=== PATIENT | female | born 1990 | race Caucasian/White ===

== ENCOUNTER 2016-10-26 18:42 | Emergency (ER) | payer OTHER ==
[~2016-10-26 18:42] MED LIST: BACTRIM DS 8001 TAB PO; CILOXAN 0.50 GTT/1 B OPH; CLINDAMYCIN HY300 MG PO; DOXYCYCLINE MO100 MG PO; IBUPROFEN600 M1 PO; IBUPROFEN800 M1 PO; IBUPROFEN800 MG PO; MOTRIN 600 MG600 MG PO; NAPROSYN500 M1 PO; PERCOCET 325 MG1 TA2 PO; PERCOCET 5-3251 EACH PO; POLYTRIM O200 GTT/BO OPH; PRENATAL1 TA2 PO; ULTRAM50 M1 PO; VALIUM5 M2 PO; VICODIN 300 MG-1 TAB PO; VICODIN5-300 PO; ZOFRAN 4 MG TABL4 MG PO; ZOFRAN4 M1 SL
--- NOTE | 2016-10-26 19:16 | ED GENERAL ADULT ---
History of Present Illness General Chief Complaint: right lower abdominal pain Stated Complaint: PT IS HAVING RIGHT SIDE PAIN, R/O KIDNEY STONES Source: patient Exam Limitations: no limitations Allergies Coded Allergies: Penicillins (Intermediate, HIVES 10/26/16) Triage Note: PT TO TRIAGE WITH RLQ PAIN STARTING TODAY. STATES FEELS LIKE A KIDNEY STONE. PT DENIES FEVERS. DENIES PAIN WITH URIANTION Triage Nurses Notes Reviewed? yes Onset: Afternoon (2 pm) Duration: intermittent Timing: multiple episodes today Severity: moderate Severity Numbers: 7 (5-7 out 0f 10) LMP (ages 10-50): 2 weeks ago : No Patient currently breastfeeds: No HPI: Patient is a 26 year old lady who came to the ED with sudden onset abdominal pain since 2 pm, on the right lower abdomen, stabbing pain, coming and going 5-, with no radiation, similar to her previous episodes of pain with kidney stones. Patient also reports noticing dark urine recently, but non bloody, reports dysuria and RLQ abdominal pain while urinating. denies fever chills, flank pain. reports back pain from the past. Patient does have history of acid reflux but currently denies epigastric pain and does not take medications for it regularly. also reports having loose stools during the past few days. 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 (BEATRICE GRAVES,[facility]) Vital Signs & Intake/Output Vital Signs & Intake/Output Vital Signs Date Time Temp Pulse Resp B/P Pulse O2 O2 Flow FiO2 Ox Delivery Rate 10/26 2353 98.7 80 18 138/90 98 Room Air 10/26 2224 98.6 84 20 140/92 98 Room Air 10/26 1856 98.1 90 16 119/76 98 Room Air Room Air ED Intake and Output 10/27 0000 10/26 1200 Intake Total 0 Output Total Balance 0 Intake, Oral 0 Reconcile Medications Diazepam (Valium) 5 MG TABLET 1-2 TAB PO Q6P PRN muscle strain/spasm Ibuprofen 600 MG TABLET 1 TAB PO Q6PRN PRN pain with food Ibuprofen 800 MG TABLET 1 TAB PO TID RIGHT SIDE PAIN, KIDNEY STONES Oxycodone HCl/Acetaminophen (Percocet 5-325 MG Tablet) 5 MG-325 MG TABLET 1-2 TAB PO Q6P PRN severe pain Oxycodone HCl/Acetaminophen (Percocet 7.5-325 MG Tablet) 7.5 MG-325 MG TABLET 1 TAB PO TID PRN SEVER PAIN No Modifying Factors: none Associated Symptoms: back pain (SHAMA CHOE MD) Past History Travel History Traveled to [place] past 21 day No Medical History Any Pertinent Medical History? see below for history Neurological: BRAIN TUMOR EENT: NONE Cardiovascular: NONE Respiratory: NONE Gastrointestinal: NONE Hepatic: NONE Renal: KIDNEY STONE KIDNEY STENT Musculoskeletal: Right hand spasdic PARALYSIS and weakness R/T BRAIN TUMOR Psychiatric: NONE Endocrine: NONE Blood Disorders: NONE Cancer(s): BRAIN TUMOR PATIENT CLERICAL ASSISTANT/Reproductive: NONE Surgical History Surgical History: non-contributory Psychosocial History What is your primary language Maltese Tobacco Use: Current Daily Use Daily Tobacco Use Amount/Type: => 5 Cigarettes daily ETOH Use: occasional use Illicit Drug Use: denies illicit drug use Family History Hx Contributory? No Sexual History Sexually Active Yes (YANIQUE BARRON MD) Review of Systems Review of Systems Constitutional: Denies: chills, fever. EENTM: Reports: no symptoms. Respiratory: Denies: cough, short of breath. Cardiovascular: Reports: edema (ankle edema, chronic). Denies: chest pain, palpitations. GI: Reports: abdominal pain. Denies: constipation, diarrhea, nausea, vomiting. Genitourinary: Reports: dysuria, pain. Denies: frequency. Musculoskeletal: Reports: back pain (chronic), joint swelling (ankle swelling). Skin: Reports: no symptoms. Neurological/Psychological: Reports: weakness (chronic, right side). Hematologic/Endocrine: Denies: bruising, bleeding, polyuria. (YANIQUE BARRON MD) Review of Systems Immunologic/Allergic: Reports: no symptoms. All Other Systems: Reviewed and Negative (SHAMA CHOE MD) Physical Exam Physical Exam General Appearance: well developed/nourished, no apparent distress, alert, awake , comfortable Head: atraumatic, normal appearance Eyes: Bilateral: PERRL. Ears, Nose, Throat: normal pharynx, normal ENT inspection Neck: normal inspection, supple Respiratory: normal breath sounds, chest non-tender, no respiratory distress, quiet respiration Cardiovascular: regular rate/rhythm Peripheral Pulses: 2+ radial (R), 2+ radial (L) Gastrointestinal: normal bowel sounds, soft, non-tender Back: normal inspection, normal range of motion, no vertebral tenderness, no CVA tenderness Extremities: normal inspection, normal capillary refill, normal range of motion, no edema Neurologic/Psych: no motor/sensory deficits, awake, alert, oriented x 3, normal mood/affect, 4/5 forces on the right side, 5/5 on the left. Core Measures ACS in differential dx? No CVA/TIA Diagnosis: No Severe Sepsis Present: No Septic Shock Present: No (YANIQUE BARRON MD) Physical Exam Reflexes: 2+: bicep (R), bicep (L). Skin: intact, normal color, warm/dry Lymphatic: no anterior cervical dominique (SHAMA CHOE MD) Progress Differential Diagnoses I considered the following diagnoses in my evaluation of the patient: [ nephrolithiasis, renal colic, acute cholecystitis, pancreatitis, UTI, cystitis] Initial ED EKG: none (YANIQUE BARRON MD) Differential Diagnoses I considered the following diagnoses in my evaluation of the patient: Plan of Care: Orders Procedure Date/time Status CBC WITHOUT DIFFERENTIAL 10/26 1956 Complete LIPASE 10/26 1947 Complete BASIC METABOLIC PANEL 10/26 1947 Complete URINE 10/26 1843 Complete URINALYSIS 10/26 1843 Complete Current Medications Sig/Servando Start time Last Medication Dose Stop Time Status Admin Ketorolac 30 MG ONCE ONE 10/26 1999 CAN Tromethamine 10/26 2000 (Toradol) Laboratory Tests 10/26/165: Anion Gap 10, Estimated GFR > 60, BUN/Creatinine Ratio 12.5, Glucose 82, Calcium 9.8, Lipase 106, CBC w Diff NO MAN DIFF REQ, RBC 5.45 H, MCV 79.2 L, MCH 26.3 L, RDW 15.3 H, MPV 10.3, Gran % 70.7, Lymphocytes % 22.1, Monocytes % 6.1, Eosinophils % 0.7, Basophils % 0.4, Absolute Granulocytes 6.4, Absolute Lymphocytes 2.0, Absolute Monocytes 0.5, Absolute Eosinophils 0.1, Absolute Basophils 0, PUBS MCHC 33.2 10/26/163: Urinalysis MOD H, Urine Color YEL, Urine Clarity HAZY H, Urine pH 6.5, Ur Specific [place] 1.020, Urine Protein 30 H, Urine Ketones 40 H, Urine Nitrite NEG, Urine Bilirubin NEG, Urine Urobilinogen 1.0, Ur Leukocyte Esterase TRACE H , Ur Microscopic SEDIMENT EXAMINED, Urine RBC 25-50 H, Urine WBC 3-5 H, Ur Epithelial Cells MOD H, Urine Hemoglobin LARGE H, Urine Glucose NEG, Urine Test NEGATIVE Departure Departure Time of Disposition: 2301 Disposition: HOME OR SELF CARE Condition: Stable Clinical Impression Primary Impression: Kidney stone on right side Ruled Out Impressions: Acute cholecystitis Referrals: JAVIER GRAVES,DEMETRI JIM APRN (PCP/Family) Additional Instructions: PLEASE FOLLOW UP WITH DR HERRERA (UROLOGY) WITHING A WEEK OF DISCHARGE. PLEASE COME BACK TO THE ED IF SYMPTOMS WORSEN. Departure Forms: Customer Survey General Discharge Information Prescriptions: Current Visit Scripts Oxycodone HCl/Acetaminophen (Percocet 7.5-325 MG Tablet) 1 TAB PO TID PRN SEVER PAIN #10 TAB Ibuprofen 1 TAB PO TID #30 TAB Comments PAIENT RECEIVED IM TORADOL AND THE PAIN RESOLVED. US SHOWED EVIDENCE OF RT KIDNEY STONES. PATIENT WILL FOLLOW UP WITH UROLOGY OUTPATIENT AND IS DISCHARGED HOME WITH IBUPROFEN AND 10 TABS OF PERCOCET. (YANIQUE BARRON MD) Resident Co-Sign Statement Statement: ED Attending supervision documentation- x I saw and evaluated the patient. I have also reviewed all the pertinent lab results and diagnostic results. I agree with the findings and the plan of care as documented in the Resident's documentation. [] I have reviewed the ED Record and agree with the Resident's documentation. [] Additions or exceptions (if any) to the Resident's note and plan are summarized below: [] (SHAMA CHOE MD) Critical Care Note Critical Care Note Critical Care Time: non-applicable (YANIQUE BARRON MD) ED Attending Observation Initial Observation Note: I have seen and personally examined ASIM ESPAÑA on 10/26/16 at 2304. I agree with the current emergency department documentation. The disposition (admission or discharge) is uncertain at this time, she needs a period of observation for the following reason(s): The ED Nurse caring for this patient has been personally informed as to what the patient is being observed for. (YANIQUE BARRON MD)
--- NOTE | 2016-10-26 21:48 | ULTRASOUND REPORT ---
EXAMINATION: US ABDOMEN COMPLETE CLINICAL INFORMATION: Right-sided abdominal pain. Dark urine. History of renal stones. COMPARISON: Renal ultrasound 03/08/2016. CT abdomen and pelvis 10/29/2014. TECHNIQUE: Real-time imaging of the abdominal viscera. FINDINGS: PANCREAS: Partially obscured by overlying bowel gas. The visualized portions of the proximal pancreas appear unremarkable. ABDOMINAL AORTA: Obscured by overlying bowel gas. INFERIOR VENA CAVA: Obscured by overlying bowel gas. LIVER: Increased echogenicity of the liver parenchyma, indicative of fatty infiltration of the liver. The liver is otherwise normal in size and contour. No focal lesion or intrahepatic biliary duct dilatation is identified. GALLBLADDER: The gallbladder is physiologically distended. Hypoechoic regions within the liver parenchyma, adjacent to the gallbladder fossa are nonspecific but could reflect areas of focal fatty sparing. No gallstones or biliary sludge identified. There is no gallbladder wall thickening or pericholecystic fluid. The patient was reportedly tender to transducer palpation within the gallbladder region. COMMON BILE DUCT: Normal in caliber measuring 0.4 cm in diameter. RIGHT KIDNEY: The right kidney is normal in size, contour and echogenicity and measures approximately 11.6 cm in length. There are two punctate echogenic foci within the right kidney which could reflect nonobstructing stones. There is no hydronephrosis of the right kidney. No focal parenchymal lesions are identified. LEFT KIDNEY: The left kidney is normal in size, contour and echogenicity and measures approximately 9.3 cm in length. There are no echogenic intrarenal foci to suggest nephrolithiasis, and there is no appreciable hydronephrosis of the left kidney. A 1.6 x 1.8 x 1.7 cm simple cyst is identified within the midpole of the left kidney. No solid parenchymal lesions are identified. SPLEEN: Mildly enlarged. The spleen measures 13.7 cm in maximum dimension. FREE FLUID: None. BLADDER: The urinary bladder is underdistended, limiting evaluation. Only the left ureteral jet is identified. IMPRESSION: 1. Limited exam secondary to overlying bowel gas. Increased echogenicity of the liver parenchyma, indicative of fatty infiltration of the liver. Focal hypoechoic regions within the liver, adjacent to the gallbladder fossa, could reflect areas of focal fatty sparing. 2. Unremarkable appearance of the gallbladder. No cholelithiasis or secondary signs of acute cholecystitis. The patient was reportedly tender to transducer palpation within the gallbladder region. 3. Two punctate echogenic foci within the right kidney. These foci are nonspecific but could reflect nonobstructing stones. 4. Splenomegaly, with the spleen visualized measuring 13.7 cm in maximum diameter.
[2016-10-26 22:04] LABS: ABSOLUTE BASOPHIL COUNT 0 /CUMM (0.0-0.2); ABSOLUTE EOSINOPHIL COUNT 0.1 /CUMM (0.0-0.7); ABSOLUTE GRANULOCYTE CT 6.4 /CUMM (1.4-6.5); ABSOLUTE MONOCYTE COUNT 0.5 /CUMM (0.10-0.60); BASOPHIL % 0.4 % (0.0-2.0); EOSINOPHIL % 0.7 % (0-5); GRANULOCYTE % 70.7 % (42.2-75.2); HEMATOCRIT 43.1 % (37-47); MEAN CORPUSCULAR HGB 26.3 PG (27.0-31.0); MEAN CORPUSCULAR HGB CONC 33.2 G/DL (33.0-37.0); MEAN CORPUSCULAR VOLUME 79.2 FL (81.0-99.0); MEAN PLATELET VOLUME 10.3 FL (7.4-10.4); PLATELET COUNT 228 /CUMM (130-400); RBC DISTRIBUTION WIDTH 15.3 % (11.5-14.5); RED BLOOD CELL CT 5.45 /CUMM (4.20-5.40)
[2016-10-26] MEDS ORDERED: PERCOCET 7.5-31 EACH PO (23:06)
[2016-10-26] MEDS ORDERED: IBUPROFEN800 M1 PO (23:11)
[2016-10-26 23:53] VITALS: BP 138/90
== END 2016-10-26 23:55 ==
LOC: ERH 18:42
PROVIDERS: Ophthalmology
DX: N20.0 Calculus of kidney (principal); K81.0 Acute cholecystitis
CPT/HCPCS: 81001; 81025; 96372; J1885

== ENCOUNTER 2016-11-11 19:46 | Emergency (ER) | payer OTHER ==
[~2016-11-11] VITALS: Ht 170.2 cm; Wt 72.6 kg
[~2016-11-11 19:46] MED LIST changes: +PERCOCET 7.5-31 EACH PO
[2016-11-11 21:42] VITALS: BP 143/76
--- NOTE | 2016-11-11 21:48 | ED GI/GU/ABDOMINAL COMPLAINT ---
History of Present Illness General Chief Complaint: Female Urogenital Problems Stated Complaint: "?UTI" Source: patient Exam Limitations: no limitations Vital Signs & Intake/Output Vital Signs & Intake/Output Vital Signs Date Time Temp Pulse Resp B/P Pulse O2 O2 Flow FiO2 Ox Delivery Rate 11/11 2142 99 11/11 2141 97.8 87 18 143/76 99 Room Air 11/11 1950 97.7 94 20 132/82 97 Room Air Allergies Coded Allergies: Penicillins (Intermediate, HIVES 11/11/16) Reconcile Medications Oxycodone HCl/Acetaminophen (Percocet 5-325 MG Tablet) 5 MG-325 MG TABLET 1 TAB PO BID PRN pain Triage Note: TRIAGE: PT TO ER WITH FRIEND C/C ?UTI AND KIDNEY STONE. 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 STATES "I'M SICK NOW, NOT THE STOMACH BUG BUT SICKNESS. THROAT SORE." ONSET FEW DAYS AGO. DENIES FEVERS. AFEBRILE AT TRIAGE. Triage Nurses Notes Reviewed? yes ? n Is pt currently ? No HPI: 26-year-old female arrives through triage to room 8 for evaluation of urinary burning, urgency and hesitancy. She reports that she had nausea vomiting and diarrhea a few days ago which have now resolved. She states that she had so much diarrhea that she believed she ended up getting a urinary tract infection from not cleaning herself too well. She denies any abdominal pain, nausea, vomiting or diarrhea. She reports that she is not sexually active at this time. Past History Travel History Traveled to [place] past 21 day No Medical History Any Pertinent Medical History? see below for history Neurological: BRAIN TUMOR EENT: NONE Cardiovascular: NONE Respiratory: NONE Gastrointestinal: NONE Hepatic: NONE Renal: KIDNEY STONE KIDNEY STENT Musculoskeletal: Right hand spasdic PARALYSIS and weakness R/T BRAIN TUMOR Psychiatric: NONE Endocrine: NONE Blood Disorders: NONE Cancer(s): BRAIN TUMOR LOCAL COMPANY INTERMODAL TRUCK DRIVER/Reproductive: NONE Surgical History Surgical History: brain surgery Psychosocial History What is your primary language Maori Tobacco Use: Current Daily Use Daily Tobacco Use Amount/Type: =< 4 Cigarettes daily ETOH Use: occasional use Illicit Drug Use: denies illicit drug use Family History Hx Contributory? No Review of Systems Review of Systems Constitutional: Reports: no symptoms. EENTM: Reports: no symptoms. Respiratory: Reports: no symptoms. Cardiovascular: Reports: no symptoms. GI: Reports: no symptoms. Genitourinary: Reports: dysuria, frequency, hesitation, urgency. Musculoskeletal: Reports: no symptoms. Skin: Reports: no symptoms. Neurological/Psychological: Reports: no symptoms. Hematologic/Endocrine: Reports: no symptoms. Immunologic/Allergic: Reports: no symptoms. All Other Systems: Reviewed and Negative Physical Exam Physical Exam General Appearance: well developed/nourished, no apparent distress, alert, awake , comfortable Head: atraumatic, normal appearance Respiratory: normal breath sounds, chest non-tender, no respiratory distress Cardiovascular: regular rate/rhythm Gastrointestinal: normal bowel sounds, soft, non-tender Back: normal inspection, normal range of motion Extremities: normal range of motion Neurologic/Psych: no motor/sensory deficits, awake, alert, oriented x 3, normal gait, normal mood/affect Skin: intact, normal color, warm/dry Core Measures ACS in differential dx? No Severe Sepsis Present: No Septic Shock Present: No Progress Differential Diagnosis: UTI/pyelo Plan of Care: Orders Procedure Date/time Status CULTURE,URINE 11/11 2138 Active URINE 11/11 2138 Complete URINALYSIS 11/11 2138 Complete Laboratory Tests 11/11/162154: Urine Color YEL, Urine Clarity HAZY H, Urine pH 6.5, Ur Specific [place] 1.020, Urine Protein TRACE H, Urine Ketones TRACE H, Urine Nitrite NEG, Urine Bilirubin NEG, Urine Urobilinogen 1.0, Ur Leukocyte Esterase NEG, Ur Microscopic SEDIMENT EXAMINED, Urine RBC 1-3, Urine WBC RARE, Ur Epithelial Cells FEW, Urine Crystals 1+ [place] OX H, Urine Hemoglobin SMALL H, Urine Glucose NEG, Urine Test NEGATIVE Microbiology 11/11 2154 URINE ROUT: Urine Culture - RECD Initial ED EKG: none Comments: Discussed UA results with patient. She had an abdominal ultrasound 2 weeks ago along with blood work and a urine and was diagnosed with kidney stones and she never followed up with Dr. Cyr due to childcare issues. We are not can repeat any blood work or ultrasound or CAT scan because she is aware that it is probably a kidney stone. She will follow up with Dr. Cyr for further evaluation. Departure Departure Time of Disposition: 2307 Disposition: HOME OR SELF CARE Condition: Stable Clinical Impression Primary Impression: Hematuria Referrals: JAVIER GRAVES,DEMETRI JIM APRN (PCP/Family) Additional Instructions: Percocet has needed for pain. Please do not drive or operate heavy machinery hot taking this medication. Please follow up with urology, Dr. Cyr. Please return to the emergency department for any worsening or concerning symptoms. Departure Forms: Customer Survey General Discharge Information Prescriptions: Current Visit Scripts Oxycodone HCl/Acetaminophen (Percocet 5-325 MG Tablet) 1 TAB PO BID PRN pain #10 TAB
[2016-11-11] MEDS ORDERED: PERCOCET 5-3251 EACH PO (23:11)
== END 2016-11-11 23:22 ==
LOC: ERH 19:46
DX: R31.9 Hematuria, unspecified (principal)
CPT/HCPCS: 81001; 81025; 87086

== ENCOUNTER 2017-01-10 19:21 | Emergency (ER) | payer OTHER ==
[~2017-01-10] VITALS: Ht 170.2 cm; Wt 95.7 kg
--- NOTE | 2017-01-10 20:20 | ED GENERAL ADULT ---
History of Present Illness General Chief Complaint: General Adult Stated Complaint: SORE THROAT"JUST NOT FEELING WELL" PER PT Source: patient, old records Exam Limitations: no limitations Vital Signs & Intake/Output Vital Signs & Intake/Output Vital Signs Date Time Temp Pulse Resp B/P Pulse O2 O2 Flow FiO2 Ox Delivery Rate 01/10 2023 Room Air 01/10 1955 98.1 92 20 139/102 96 Room Air Allergies Coded Allergies: Penicillins (Intermediate, HIVES 11/11/16) Reconcile Medications Oxycodone HCl/Acetaminophen (Percocet 5-325 MG Tablet) 5 MG-325 MG TABLET 1 TAB PO BID PRN pain Triage Note: RECEIVED 26 YO FEMALE C/O RASPY HOARSE VOICE X ONE DAY, RUNNY NOSE, PRODUCTIVE COUGH. FAMILY AT HOME SICK WITH SAME. NO C/O THROAT PAIN Triage Nurses Notes Reviewed? yes : No Patient currently breastfeeds: No HPI: Patient presents with a hoarse voice for the past one day. Patient states that she has been having some chills as well as a productive cough with green sputum. There is no shortness of breath or chest pain. There is no sore throat. There are no fevers. Patient states both of her children are at home with cold like illnesses. Past History Travel History Traveled to [place] past 21 day No Medical History Any Pertinent Medical History? see below for history Neurological: BRAIN TUMOR EENT: NONE Cardiovascular: NONE Respiratory: NONE Gastrointestinal: NONE Hepatic: NONE Renal: KIDNEY STONE KIDNEY STENT Musculoskeletal: Right hand spasdic PARALYSIS and weakness R/T BRAIN TUMOR Psychiatric: NONE Endocrine: NONE Blood Disorders: NONE Cancer(s): BRAIN TUMOR UNDERWRITING CLERK/Reproductive: NONE Surgical History Surgical History: brain surgery Psychosocial History What is your primary language Palestinian Tobacco Use: Never used ETOH Use: denies use Illicit Drug Use: denies illicit drug use Family History Hx Contributory? No Review of Systems Review of Systems Constitutional: Reports: see HPI, chills. EENTM: Reports: see HPI. Respiratory: Reports: see HPI, cough, sputum production. Cardiovascular: Reports: no symptoms. GI: Reports: no symptoms. Genitourinary: Reports: no symptoms. Musculoskeletal: Reports: no symptoms. Skin: Reports: no symptoms. Neurological/Psychological: Reports: no symptoms. Hematologic/Endocrine: Reports: no symptoms. Immunologic/Allergic: Reports: no symptoms. All Other Systems: Reviewed and Negative Physical Exam Physical Exam General Appearance: well developed/nourished, alert, awake, anxious Head: atraumatic Eyes: Bilateral: PERRL, EOMI. Ears, Nose, Throat: normal pharynx, normal ENT inspection, hearing grossly normal Neck: normal inspection, supple, full range of motion Respiratory: normal breath sounds, chest non-tender, no respiratory distress, lungs clear Cardiovascular: regular rate/rhythm, normal peripheral pulses Gastrointestinal: normal bowel sounds, soft, non-tender, no organomegaly Back: normal inspection, normal range of motion Extremities: normal inspection, normal capillary refill, normal range of motion, no edema Neurologic/Psych: no motor/sensory deficits, awake, alert, oriented x 3, normal gait, normal mood/affect Skin: intact, normal color, warm/dry Lymphatic: no anterior cervical dominique Core Measures ACS in differential dx? No CVA/TIA Diagnosis: No Severe Sepsis Present: No Septic Shock Present: No Progress Differential Diagnoses I considered the following diagnoses in my evaluation of the patient: [Pneumonia , mass causing injury to the recurrent laryngeal nerve, bronchitis] Plan of Care: Orders Procedure Date/time Status XRY-CHEST XRAY, PA AND LATERAL 01/10 2019 Active Diagnostic Imaging: Viewed by Me: Radiology Read. Discussed w/RAD: Radiology Read. CXR Impression: PATIENT: ASIM ESPAÑA PRESENT AGE : 26 PATIENT ACCOUNT NO: [id number] : 88 LOCATION: [facility] ORDERING PHYSICIAN: CINDI HERNANDEZ MD SERVICE DATE: 01/10/17 EXAM TYPE: RAD - XRY-CHEST XRAY, PA AND LATERAL EXAMINATION: XR CHEST CLINICAL INFORMATION: Pneumonia. Mass. COMPARISON: Chest x-ray 02/11/2013 TECHNIQUE: 2 views of the chest were obtained. FINDINGS: No significant abnormality is noted involving the heart, lungs, mediastinum, bony thorax or soft tissues. IMPRESSION: Unremarkable examination. DICTATED BY: SCARLETT ARREOLA MD DATE/TIME DICTATED:01/10/172050 TABLE TENDER SLUDGE:HARLEY DATE/TIME TRANSCRIBED:01/10/172050 CONFIDENTIAL, DO NOT COPY WITHOUT APPROPRIATE AUTHORIZATION. <Electronically signed in Other Vendor System> SIGNED BY: SCARLETT ARREOLA MD 01/10/172054 Initial ED EKG: none Comments: Patient wants to make sure that she is able to drink alcohol with whatever antibiotic we put her on. Departure Departure Disposition: HOME OR SELF CARE Condition: Stable Clinical Impression Primary Impression: Bronchitis Referrals: DEMETRI PAULSON APRN (PCP/Family) Additional Instructions: DRINK PLENTY OF FLUIDS RETURN FOR ANY CONCERNS Departure Forms: Customer Survey General Discharge Information Prescriptions: Current Visit Scripts Azithromycin (Zithromax) 1 DP PO AD #6 TAB 2 the first day followed by 1 for days 2-5 Critical Care Note Critical Care Note Critical Care Time: non-applicable
--- NOTE | 2017-01-10 20:55 | RADIOLOGY REPORT ---
EXAMINATION: XR CHEST CLINICAL INFORMATION: Pneumonia. Mass. COMPARISON: Chest x-ray 02/11/2013 TECHNIQUE: 2 views of the chest were obtained. FINDINGS: No significant abnormality is noted involving the heart, lungs, mediastinum, bony thorax or soft tissues. IMPRESSION: Unremarkable examination.
[2017-01-10] MEDS ORDERED: ZITHROMAX250 M2 PO (21:23)
[2017-01-10 21:27] VITALS: BP 138/89
== END 2017-01-10 21:28 ==
LOC: ERH 19:21
DX: J40 Bronchitis, not specified as acute or chronic (principal)

== ENCOUNTER 2018-06-27 18:32 | Emergency (ER) | payer OTHER ==
[~2018-06-27] VITALS: Ht 170.2 cm; Wt 95.3 kg
[~2018-06-27 18:32] MED LIST changes: +CYCLOBENZAPRINE5 M2 PO; +FLONASE ALLERG9.9 ML NAS; +GI COCKTAIL PO; +KEFLEX500 M1 PO; +MEDROL4 M2 PO; +MOBIC15 M1 PO; +OCUFLOX5 ML OPH; +POLYTRIM EYE DR10 ML OPH; +TYLENOL WITH C1 EACH PO; +VALTREX1000 MG PO; +VITAMIN D250000 UNIT PO; +ZITHROMAX250 M2 PO; +ZOFRAN ODT4 M1 SL
[2018-06-27 21:09] LABS: ABSOLUTE BASOPHIL COUNT 0 /CUMM (0.0-0.2); ABSOLUTE EOSINOPHIL COUNT 0.1 /CUMM (0.0-0.7); ABSOLUTE GRANULOCYTE CT 5.5 /CUMM (1.4-6.5); ABSOLUTE LYMPH COUNT 1.4 /CUMM (1.2-3.4); ABSOLUTE MONOCYTE COUNT 0.5 /CUMM (0.10-0.60); BASOPHIL % 0.4 % (0.0-2.0); EOSINOPHIL % 1.1 % (0-5); GRANULOCYTE % 72.7 % (42.2-75.2); HEMATOCRIT 43.9 % (37-47); MEAN CORPUSCULAR HGB 27.6 PG (27.0-31.0); MEAN CORPUSCULAR HGB CONC 33.2 G/DL (33.0-37.0); MEAN CORPUSCULAR VOLUME 83.2 FL (81.0-99.0); MEAN PLATELET VOLUME 10.5 FL (7.4-10.4); PLATELET COUNT 211 /CUMM (130-400); RBC DISTRIBUTION WIDTH 14.9 % (11.5-14.5); RED BLOOD CELL CT 5.28 /CUMM (4.20-5.40); WHITE BLOOD CELL COUNT 7.5 /CUMM (4.8-10.8)
[2018-06-27 21:30] VITALS: BP 142/82
--- NOTE | 2018-06-27 21:33 | CT SCAN REPORT ---
EXAMINATION: CT ABDOMEN AND PELVIS WITHOUT CONTRAST CLINICAL INFORMATION: Left flank pain. History of kidney stones. COMPARISON: CT scan abdomen pelvis 06/18/2017 TECHNIQUE: Multidetector volumetric imaging was performed from the superior aspect of the liver through the pubic symphysis. Sagittal and coronal reformatted images were obtained on the technologist's workstation. DLP: 779.06 mGy-cm FINDINGS: LUNG BASES: The visualized lung bases are unremarkable. LIVER, GALLBLADDER, AND BILIARY TREE: The liver is normal in size, shape, and attenuation. No focal hepatic lesion or biliary ductal dilatation is present. The gallbladder is contracted. There is no bile duct dilatation. PANCREAS: Unremarkable. SPLEEN: Unremarkable. ADRENAL GLANDS: Unremarkable. KIDNEYS AND URETERS: There is a nonobstructive 3 mm stone at the lower pole of the left kidney. There is a less than 1 mm size stone in the mid lower pole of right kidney. There is no hydronephrosis. There is no ureteral calculus. There is a 2.2 cm cortical cyst mid lower pole of the left kidney. BLADDER: Unremarkable. GASTROINTESTINAL TRACT: There is no acute change of the bowel. No bowel obstruction. No bowel wall thickening or edema. There is a moderate volume of stool throughout the colon. The appendix is normal. The small bowel loops are unremarkable. ABDOMINAL WALL: There is a small fat-containing umbilical hernia. LYMPH NODES: Normal. VASCULAR: Unremarkable. PELVIC VISCERA: Uterus is retroverted. There is no adnexal abnormality. OSSEOUS STRUCTURES: Unremarkable. IMPRESSION: There is no acute abnormality of the abdomen or the pelvis. There is a nonobstructive stone in the left kidney and right kidney. There is no ureteral stone and no hydronephrosis.
--- NOTE | 2018-06-27 21:36 | ED GI/GU/ABDOMINAL COMPLAINT ---
History of Present Illness General Chief Complaint: Abdominal Pain/Flank Pain Stated Complaint: R FLANK PAIN Source: patient Exam Limitations: no limitations Vital Signs & Intake/Output Vital Signs & Intake/Output Vital Signs Date Time Temp Pulse Resp B/P B/P Pulse O2 O2 Flow FiO2 Mean Ox Delivery Rate 06/27 2130 98.0 88 18 142/82 99 06/27 1837 98.2 90 18 154/87 99 Room Air ED Intake and Output 06/28 0000 06/27 1200 Intake Total 0 Output Total Balance 0 Intake, Oral 0 Patient 210 lb Weight Allergies Coded Allergies: Penicillins (Intermediate, HIVES 11/29/17) Reconcile Medications Cephalexin (Keflex) 500 MG CAPSULE 1 CAP PO BID ABSCESS Cyclobenzaprine HCl 5 MG TABLET 1 TAB PO TIDPRN PRN pain Fluticasone Propionate (Flonase Allergy Relief) 50 MCG/ACTUATION SPRAY.SUSP 2 SPRAY KENYA DAILY PRN CONGESTION Ibuprofen 800 MG TABLET 1 TAB PO TID PRN PAIN Ofloxacin (Ocuflox) 0.3 % DROPS 1 GTT OPH 4 TIMES/DAY conjunctivitis Valacyclovir HCl (Valtrex) 1,000 MG TABLET 1 TAB PO BID HSV Triage Note: 27 YEAR OLD FEMALE STATES THAT SHE HAS A HISTORY OF KIDNEY STONES ON HER R SIDE BUT THAT SHE HAS BEEN HAVING INTERMITTANT L SIDE FLANK PAIN THAT STARTED YESTERDAY, DENIES BLOOD IN URINE, DENIES N/V/D Triage Nurses Notes Reviewed? yes LMP (ages 10-50): unknown ? n Is pt currently ? No Onset: Abrupt Duration: day(s): (1-2), constant, continues in ED Timing: recent history Quality/Severity: cramping Severity Numbers: 5 Location: left flank Radiation: no radiation Activities at Onset: none Prior Abdominal Problems: similar symptoms Past Sexual History: Unobtainable at this time Associated Symptoms: abdominal pain HPI: 27-year-old female history of kidney stones and brain tumor presents for evaluation of left flank pain. Patient reports symptoms started yesterday with pain in the flank described as cramping I've a 10. The pain does not radiate. She reports she has had similar symptoms with pain on the right side associated with kidney stones. She states the pain is intermittently worse. She is not taking any medicine for it. She denies nausea vomiting fevers hematuria or urinary symptoms back pain chest pain or shortness of breath. Past History Travel History Traveled to [place] past 21 day No Medical History Any Pertinent Medical History? 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 No Review of Systems Review of Systems Constitutional: Reports: no symptoms. EENTM: Reports: no symptoms. Respiratory: Reports: no symptoms. Cardiovascular: Reports: no symptoms. GI: Reports: see HPI, abdominal pain. Genitourinary: Reports: no symptoms. Musculoskeletal: Reports: see HPI, muscle pain, muscle stiffness. Skin: Reports: no symptoms. Neurological/Psychological: Reports: no symptoms. Hematologic/Endocrine: Reports: no symptoms. Immunologic/Allergic: Reports: no symptoms. All Other Systems: Reviewed and Negative Physical Exam Physical Exam General Appearance: well developed/nourished, no apparent distress, alert, awake Head: atraumatic, normal appearance Eyes: Bilateral: normal appearance, EOMI. Ears, Nose, Throat, Mouth: moist mucous membrane Neck: normal inspection, supple, full range of motion Respiratory: normal breath sounds, chest non-tender, no respiratory distress, lungs clear Cardiovascular: regular rate/rhythm, normal peripheral pulses Peripheral Pulses: 2+ radial (R), 2+ radial (L) Gastrointestinal: normal bowel sounds, soft, no organomegaly, tenderness (left flank) Back: normal inspection, normal range of motion, no CVA tenderness Extremities: normal range of motion Neurologic/Psych: no motor/sensory deficits, awake, alert, oriented x 3, normal gait Skin: intact, normal color, warm/dry Core Measures ACS in differential dx? No Sepsis Present: No Sepsis Focused Exam Completed? No Progress Differential Diagnosis: gastritis, inflamm bowel dis, intrauterine , kidney stone, pancreatitis, peptic ulcer, PUD/GERD, UTI/pyelo Plan of Care: Orders Procedure Date/time Status URINE 06/27 1840 Complete URINALYSIS 06/27 1840 Complete LIPASE 06/27 1840 Complete COMPREHENSIVE METABOLIC PANEL 06/27 1840 Complete CBC WITHOUT DIFFERENTIAL 06/27 1840 Complete Laboratory Tests 06/27/18 2100: CBC w Diff NO MAN DIFF REQ, RBC 5.28, MCV 83.2, MCH 27.6, MCHC 33.2, RDW 14.9 H , MPV 10.5 H, Gran % 72.7, Lymphocytes % 18.5 L, Monocytes % 7.3, Eosinophils % 1.1, Basophils % 0.4, Absolute Granulocytes 5.5, Absolute Lymphocytes 1.4, Absolute Monocytes 0.5, Absolute Eosinophils 0.1, Absolute Basophils 0 06/27/181946: Anion Gap 10, Estimated GFR > 60, BUN/Creatinine Ratio 15.7, Glucose 112 H, Calcium 9.3, Total Bilirubin 0.3, AST 45 H, ALT 74 H, Alkaline Phosphatase 87, Total Protein 6.9, Albumin 4.2, Globulin 2.7, Albumin/Globulin Ratio 1.6, Lipase 147 06/27/181846: Urine Color YEL, Urine Clarity CLEAR, Urine pH 7.0, Ur Specific [place] 1.020, Urine Protein TRACE H, Urine Ketones NEG, Urine Nitrite NEG, Urine Bilirubin NEG, Urine Urobilinogen 1.0, Ur Leukocyte Esterase NEG, Ur Microscopic SEDIMENT EXAMINED, Urine WBC 1-3 H, Ur Epithelial Cells MOD H, Urine Bacteria FEW H, Urine Hemoglobin NEG, Urine Glucose NEG, Urine Test NEGATIVE Patient is here for evaluation of left flank pain that started yesterday. She does note a history of kidney stones and feeling this is similar. Vital signs are stable lab CT scan ordered patient was medicated with Toradol. lAbs show a A mild transaminitis however otherwise unremarkable. CT scan is negative for any acute findings. On reevaluation patient is feeling better after Toradol. She is tolerating fluids. She appears comfortable. Advise continuing Tylenol ibuprofen for pain drink plenty of fluids follow-up with a primary care doctor discussed return precautions and advised patient to follow up regarding the transaminitis reviewed all results of today's visit with patient patient agrees the plan Diagnostic Imaging: Viewed by Me: CT Scan. Discussed w/RAD: CT Scan. Radiology Impression: PATIENT: ASIM ESPAÑA PRESENT AGE: 27 PATIENT ACCOUNT NO: [id number] : 88 LOCATION: [facility] ORDERING PHYSICIAN: Nash CABALLERO SERVICE DATE: 06/27/18 EXAM TYPE: CAT - CT ABD & PELVIS W/O IV CONTRAS EXAMINATION: CT ABDOMEN AND PELVIS WITHOUT CONTRAST CLINICAL INFORMATION: Left flank pain. History of kidney stones. COMPARISON: CT scan abdomen pelvis 06/18/2017 TECHNIQUE: Multidetector volumetric imaging was performed from the superior aspect of the liver through the pubic symphysis. Sagittal and coronal reformatted images were obtained on the technologist's workstation. DLP: 779.06 mGy-cm FINDINGS: LUNG BASES: The visualized lung bases are unremarkable. LIVER, GALLBLADDER, AND BILIARY TREE: The liver is normal in size, shape, and attenuation. No focal hepatic lesion or biliary ductal dilatation is present. The gallbladder is contracted. There is no bile duct dilatation. PANCREAS: Unremarkable. SPLEEN: Unremarkable. ADRENAL GLANDS: Unremarkable. KIDNEYS AND URETERS: There is a nonobstructive 3 mm stone at the lower pole of the left kidney. There is a less than 1 mm size stone in the mid lower pole of right kidney. There is no hydronephrosis. There is no ureteral calculus. There is a 2.2 cm cortical cyst mid lower pole of the left kidney. BLADDER: Unremarkable. GASTROINTESTINAL TRACT: There is no acute change of the bowel. No bowel obstruction. No bowel wall thickening or edema. There is a moderate volume of stool throughout the colon. The appendix is normal. The small bowel loops are unremarkable. ABDOMINAL WALL: There is a small fat- containing umbilical hernia. LYMPH NODES: Normal. VASCULAR: Unremarkable. PELVIC VISCERA: Uterus is retroverted. There is no adnexal abnormality. OSSEOUS STRUCTURES: Unremarkable. IMPRESSION: There is no acute abnormality of the abdomen or the pelvis. There is a nonobstructive stone in the left kidney and right kidney. There is no ureteral stone and no hydronephrosis. DICTATED BY: Eddie Hall MD DATE/TIME DICTATED:06/27/182039 PARACHUTIST/COMBATANT DIVER QUALIFIED:HARLEY DATE/TIME TRANSCRIBED:06/27/182039 CONFIDENTIAL, DO NOT COPY WITHOUT APPROPRIATE AUTHORIZATION. <Electronically signed in Other Vendor System> Initial ED EKG: none Departure Departure Disposition: HOME OR SELF CARE Condition: Stable Clinical Impression Primary Impression: Flank pain Referrals: Lauren Boyer APRN (PCP/Family) Additional Instructions: Rest and drink plenty of fluids. Tylenol ibuprofen as needed for pain. Make a follow-up appointment with your primary care doctor to review all results of today's visit monitor your symptoms return with any concerns. You need to follow-up with your doctor regarding your elevated liver function tests. Departure Forms: Customer Survey General Discharge Information Prescriptions: Current Visit Scripts Ibuprofen 1 TAB PO TID PRN PAIN #30 TAB
[2018-06-27] MEDS ORDERED: IBUPROFEN800 M1 PO (21:41)
== END 2018-06-27 21:48 ==
LOC: ERH 18:32
PROVIDERS: Physician Assistant Medical
DX: R10.9 Unspecified abdominal pain (principal)
CPT/HCPCS: 74176; 81001; 81025; 96372; J1885